=== PATIENT | male | born 1950 | race Caucasian/White ===

== ENCOUNTER → 2016-09-02 | Outpatient (CLI) | payer OTHER ==
[2016-09-02 13:15] LABS: FREE T4 (FREE THYROXINE) 2.01 ng/dL (0.93-1.71)
[2016-09-02 13:57] LABS: BILIRUBIN,URINE NEGATIVE (NEG); COLOR,URINE YELLOW; GLUCOSE, URINE (UA) NEGATIVE (NEG); NITRATE,URINE NEGATIVE (NEG); OCCULT BLOOD,URINE NEGATIVE (NEG); PH,URINE 5.5 (5.0-8.5); PROTEIN,URINE NEGATIVE (NEG); UROBILINOGEN,URINE 0.2 mg/dL (0.2)
[2016-09-02 14:06] LABS: CLARITY,URINE CLEAR (CLEAR)
[2016-09-02 14:09] LABS: RBC,URINE 0 /hpf; URINE SAMPLE TYPE VOIDED SPECIMEN; WBC,URINE 0
[2016-09-02 14:10] LABS: BACTERIA,URINE FEW; URINE CASTS RARE
[2016-09-02 14:12] LABS: CREATININE, URINE 186.8 MG/DL (15-500)
== END ==
LOC: MOB LAB 09:35
DX: E11.9 Type 2 diabetes mellitus without complications (principal); E03.9 Hypothyroidism, unspecified; E78.5 Hyperlipidemia, unspecified; I10 Essential (primary) hypertension; K21.9 Gastro-esophageal reflux disease without esophagitis; J30.9 Allergic rhinitis, unspecified
CPT/HCPCS: 36415; 81001; 82043; 83036; 84439; 84443; 99213; G0463